=== PATIENT | male | born 1965 | race African-American/Black ===

== ENCOUNTER 2020-10-19 09:52 | Emergency (ER) | payer OTHER ==
[2020-10-19 10:18] VITALS: BMI 23.6
[2020-10-19] MEDS ORDERED: ACETAMINOPHEN 325 MG TABLET (FP) ONE (10:46)
[2020-10-19] MEDS ORDERED: ACETAMINOPHEN 325 MG TABLET (FP) PO ONE (10:46)
[2020-10-19 13:48] VITALS: BP 120/62; PULSE 71; TEMP 98.2
== END 2020-10-19 13:47 | disposition home or self-care (01) ==
LOC: JER 09:52
DX: S16.1XXA Strain of muscle, fascia and tendon at neck level, initial encounter (principal)
CPT/HCPCS: 70450-TC; 71046-TC-FY; 71101-TC-LT-FY; 72125-TC; 72170-TC-FY; 99285-25